=== PATIENT | female | born 1970 | race Caucasian/White ===

== ENCOUNTER 2021-02-13 01:27 | Emergency (ER) | payer OTHER ==
[2021-02-13] MEDS ORDERED: Ondansetron PF 4 MG/2 ML Vial ONE (02:27)
[2021-02-13] MEDS ORDERED: Morphine 4 MG/ML VIAL ONE (02:27)
[2021-02-13 03:02] LABS: #Lymphocytes 2.9 thou/uL (1.20-3.40); #Monocytes 0.7 thou/uL (0.11-0.59); #Neutrophils 6.2 thou/uL (1.40-6.50); %Basophils 0.1 % (0.0-1.0); %Eosinophils 0.5 % (0.0-10.0); %Monocytes 7.2 % (0.0-10.0); %Neutrophils 63.3 % (42.0-75.0); Hemoglobin 15.1 g/dL (12.0-16.0); Mean Corpuscular HGB CONC 32.8 g/dL (32.0-36.0); Mean Corpuscular Hemoglobin 28.7 pg (27.0-31.0); Mean Corpuscular Volume 87.3 fL (78.0-98.0); Platelet Count 321 thou/uL (130-400); RBC Distribution Width 12.1 % (11.5-14.5); Red Blood Cell (RBC) Count 5.25 mill/uL (4.20-5.40); White Blood Cell (WBC) Count 9.9 thou/uL (4.8-10.8)
[2021-02-13 03:19] LABS: Bacteria/HPF None Seen HPF (None Seen); Bilirubin Negative (Negative); Blood, Urine Negative (Negative); Clarity Clear (Clear); Glucose, Urine (Dipstick) 30 mg/dL (Negative); Ketone, Urine Trace mg/dL (Negative); Leukocyte Negative Leu/uL (Negative); Mucous/LPF 4+ LPF (<2+); Nitrite Negative (Negative); Protein, Urine (Dipstick) 200 mg/dL (Neg-Trace)
[2021-02-13 03:23] LABS: ALT (SGPT) 51 U/L (8-55); AST (SGOT) 37 U/L (5-34); Albumin 4.3 g/dL (3.5-5.0); Alkaline Phosphatase 68 U/L (40-110); Anion Gap 17 mmol/L (10-20); BUN (Urea Nitrogen) 22 mg/dL (9.8-20.1); Bilirubin, Total 0.5 mg/dL (0.2-1.2); Calc. Creatinine Clearance 0 mL/min (70-130); Calcium 8.9 mg/dL (7.8-10.44); Carbon Dioxide 23 mmol/L (22-29); Chloride 103 mmol/L (98-107); Globulin 3.6 g/dL (2.4-3.5); Glucose 164 mg/dL (70-105); Lipase 11 U/L (8-78); Protein, Total 7.9 g/dL (6.0-8.3); Sodium 140 mmol/L (136-145)
[2021-02-13 03:27] LABS: Specific Gravity, Urine 1.047 (1.002-1.036)
[2021-02-13] MEDS ORDERED: Iopamidol 370 76% 100 ML VIAL ONE (10:53)
== END 2021-02-13 04:00 | disposition home or self-care (01) ==
LOC: ERS 01:27
DX: R10.30 Lower abdominal pain, unspecified (principal); R19.7 Diarrhea, unspecified; R11.10 Vomiting, unspecified; E78.5 Hyperlipidemia, unspecified; E78.00 Pure hypercholesterolemia, unspecified; I10 Essential (primary) hypertension; Z79.82 Long term (current) use of aspirin; Z79.899 Other long term (current) drug therapy
CPT/HCPCS: 74177; 80053; 81003; 81015; 83690; 85025; 93005; 96374; 96375; J2270; J2405; Q9967

== ENCOUNTER 2024-06-09 09:35 | Outpatient (CLI) | payer OTHER ==
[2024-06-09] MEDS ORDERED: Magnevist 469MG/ML 20 ML VIAL ONE (10:29)
== END 2024-06-09 09:36 | disposition home or self-care (01) ==
LOC: BICMRI 09:35
PROVIDERS: ATTEND Family Medicine
DX: R47.81 Slurred speech (principal)
CPT/HCPCS: 70553; A9579

== ENCOUNTER 2024-06-10 16:04 | Emergency (ER) | payer OTHER ==
[2024-06-10 18:54] LABS: White Blood Cell (WBC) Count 10.81 10x3/uL (4.8-10.8)
[2024-06-10 18:55] LABS: #Eosinphils 0.25 10x3/uL (0.0-0.7); #Monocytes 0.61 10x3/uL (0.11-0.59); #Neutrophils 7.17 10x3/uL (1.40-6.50); %Basophils 0.2 % (0.0-1.0); %Eosinophils 2.3 % (0.0-10.0); %Lymphocytes 25.2 % (21.0-51.0); %Monocytes 5.6 % (0.0-10.0); %Neutrophils 66.3 % (42.0-75.0); Hematocrit 46.5 % (36.0-47.0); Hemoglobin 14.8 g/dL (12.0-16.0); Mean Corpuscular HGB CONC 31.8 g/dL (32.0-36.0); Mean Corpuscular Volume 87.9 fL (78.0-98.0); Mean Platelet Volume 9.8 fL (7.4-10.4); Platelet Count 331 10x3/uL (130-400); Red Blood Cell (RBC) Count 5.29 mill/uL (4.20-5.40)
[2024-06-10 18:56] LABS: #Basophils 0.02 10x3/uL (0.0-0.2); RBC Morphology Within Normal Limits
[2024-06-10 19:01] LABS: BHCG - Serum Negative (NEGATIVE); Pregs Control Background? CLEAR/WHITE (CLR/WHITE); Pregs Control Bar Appear? YES (CONTROL BAR)
[2024-06-10 19:04] LABS: ALT (SGPT) 44 U/L (8-55); AST (SGOT) 32 U/L (5-34); Albumin 4.1 g/dL (3.5-5.0); Alkaline Phosphatase 72 U/L (40-110); Anion Gap 11 mmol/L (10-20); BUN (Urea Nitrogen) 21 mg/dL (9.8-20.1); Bilirubin, Total 0.6 mg/dL (0.2-1.2); Calc. Creatinine Clearance 0 mL/min (70-130); Calcium 9.7 mg/dL (7.8-10.44); Carbon Dioxide 30 mmol/L (22-29); Chloride 104 mmol/L (98-107); Estimated GFR 83; Globulin 3.7 g/dL (2.4-3.5); Glucose 109 mg/dL (70-105); Potassium 3.7 mmol/L (3.5-5.1); Protein, Total 7.8 g/dL (6.0-8.3); Sodium 141 mmol/L (136-145)
[2024-06-10 19:12] LABS: Troponin I Less than 0.010 ng/mL (< 0.028)
== END 2024-06-10 19:44 ==
LOC: ERS 16:04
DX: R55 Syncope and collapse (principal); I10 Essential (primary) hypertension
CPT/HCPCS: 36415; 80053; 84484; 84703; 85025; 93005